=== PATIENT | female | born 1950 | race Hispanic/Latino ===

== ENCOUNTER 2017-03-20 11:10 | Outpatient (CLI) | payer MEDICARE | END 2017-03-20 11:11 | disposition home or self-care (01) | LOC: LAB 11:10 | PROVIDERS: ATTEND Specialist | DX: G35 Multiple sclerosis (principal) | CPT/HCPCS: 36415; 82947 ==

== ENCOUNTER 2017-06-17 08:23 | Outpatient (CLI) | payer MEDICARE ==
[2017-06-17 08:56] LABS: Hematocrit 37.7 % (30.3-42.9); Hemoglobin 12.3 gm/dl (10.1-14.3); Mean Corpuscular HGB Conc 33 % (30-34); Mean Corpuscular Hemoglobin 29 pg (28-32); Mean Corpuscular Volume 89 fl (79-97); Platelet Count 267 K/mm3 (140-440); Red Blood Count 4.25 M/mm3 (3.65-5.03); White Blood Count 4.2 K/mm3 (4.5-11.0)
[2017-06-17 09:16] LABS: Alanine Aminotransferase 13 units/L (7-56); Albumin 4.3 g/dL (3.9-5); Albumin/Globulin Ratio 1.7 %; Alkaline Phosphatase 63 units/L (35-129); Anion Gap 20 mmol/L; BUN/Creatinine Ratio 27; Blood Urea Nitrogen 16 mg/dL (7-17); Calcium 9.3 mg/dL (8.4-10.2); Carbon Dioxide 24 mmol/L (22-30); Glucose 94 mg/dL (65-100); Potassium 3.9 mmol/L (3.6-5.0); Sodium 138 mmol/L (137-145); Total Protein 6.8 g/dL (6.3-8.2)
== END 2017-06-17 08:24 | disposition home or self-care (01) ==
LOC: LAB 08:23
PROVIDERS: ATTEND Specialist
DX: G60.9 Hereditary and idiopathic neuropathy, unspecified (principal)
CPT/HCPCS: 36415; 80053; 82607; 82747; 82951; 84439; 84443; 85027

== ENCOUNTER 2018-02-13 09:48 | Outpatient (CLI) | payer MEDICARE ==
--- NOTE | 2018-02-13 15:33 | Magnetic Resonance Report ---
FINAL REPORT EXAM: MR THORACIC SPINE WO CON HISTORY: MS TECHNIQUE: Multiplanar, multi sequence MRI of the thoracic spine was performed without intravenous contrast. PRIORS: None. FINDINGS: Motion artifact degrades image quality on multiple sequences. The vertebral body heights are maintained. The disc spaces are maintained. No spinal stenosis. Normal alignment is noted. The thoracic spinal cord is normal in signal without definite focal lesion. The paraspinous soft tissues are normal. There is a small posterior disc bulge at T8-9. IMPRESSION: 1. No definite thoracic spinal cord lesions of multiple sclerosis. 2. Mild posterior disc bulge at T8-9 without spinal stenosis.
== END 2018-02-13 09:49 | disposition home or self-care (01) ==
LOC: MRI 09:48
PROVIDERS: ATTEND Specialist
DX: M51.24 Other intervertebral disc displacement, thoracic region (principal)
CPT/HCPCS: 70551; 72146